=== PATIENT | male | born 1950 | race Caucasian/White ===

== ENCOUNTER 2021-10-28 17:22 | Inpatient (IN) | payer MEDICARE ==
[~2021-10-28] VITALS: Ht 177.8 cm; Wt 62.6 kg
--- NOTE | 2021-10-28 17:37 | NUR ---
LESLIE HOPSON FROM [facility] PRIOR TO [facility] ADMISSION. TO ER BED 11, HOOKED TO MONITOR, VSS. CHANGED TO HOSP GOWN, WARM BLANKET PROVIDED.
--- NOTE | 2021-10-28 18:58 | NUR ---
COVID 19 AG SWAB DONE AND SENT TO LAB
--- NOTE | 2021-10-28 19:05 | NUR ---
HEALTH ADMINISTRATOR AT BEDSIDE
--- NOTE | 2021-10-28 19:14 | NUR ---
PATIENT NOT ABLE TO PROVIDE URINE SAMPLE AT THIS TIME. PROVIDED W WATER.
[2021-10-28 19:19] LABS: BASOPHILS % (AUTO) 0.4 % (0.0-2.0); EOSINOPHILS % (AUTO) 0.8 % (0.0-6.0); HEMATOCRIT 34 % (39-51); HEMOGLOBIN 11.2 g/dL (13.5-17.5); LYMPHOCYTES # (AUTO) 1.8 K/uL (0.8-4.8); LYMPHOCYTES % (AUTO) 23.4 % (20.0-44.0); MEAN CORPUSCULAR HGB CONC 33 g/dl (31.0-36.0); MEAN CORPUSCULAR VOLUME 87 fL (80-96); MONOCYTES # (AUTO) 0.6 K/uL (0.1-1.30); MONOCYTES % (AUTO) 7.8 % (2.0-12.0); NEUTROPHILS # (AUTO) 5.3 K/uL (1.8-8.9); NEUTROPHILS % (AUTO) 67.6 % (43.0-81.0); PLATELET COUNT (AUTO) 272 K/uL (150-450); RED BLOOD CELL COUNT(AUTO) 3.93 MIL/uL (4.5-6.0); WHITE BLOOD COUNT (AUTO) 7.9 K/uL (4.3-11.0)
[2021-10-28 19:27] LABS: CALCIUM, SERUM 8.6 mg/dL (8.5-10.1); CARBON DIOXIDE 25 mmol/L (21-32); CHLORIDE 105 mmol/L (98-107); CREATININE 2.5 mg/dL (0.6-1.3); GLUCOSE 104 mg/dL (74-106); POTASSIUM 4.1 mmol/L (3.5-5.1); SODIUM SERUM 140 mmol/L (136-145); UREA NITROGEN, BLOOD 48 mg/dL (7-18)
--- NOTE | 2021-10-28 19:32 | NUR ---
ENDORSEMENT GIVEN TO DAVID JAMA FOR GRICELDA
[2021-10-28 19:33] LABS: ALANINE AMINOTRANSFERASE 35 U/L (12-78); ALBUMIN 3.1 g/dL (3.4-5.0); ALCOHOL, BLOOD < 3 mg/dL (0-0); ALKALINE PHOSPHATASE 90 U/L (46-116); ASPARTATE AMINOTRANSFERASE 20 U/L (15-37); BILIRUBIN,DIRECT 0.1 mg/dL (0.0-0.2); BILIRUBIN,TOTAL 0.4 mg/dL (0.2-1.0); TOTAL PROTEIN, SERUM 6.3 g/dL (6.4-8.2)
[2021-10-28 19:36] LABS: ACETAMINOPHEN < 2 ug/ml (10-30)
--- NOTE | 2021-10-28 21:38 | NUR ---
ATTEMPTED TO GIVE REPORT, JUST RINGING. WILL TRY AGAIN
--- NOTE | 2021-10-28 22:30 | NUR ---
Ian ly in [facility] - 10/29/21 at 0238 by RAFIQ LAC 20G INITIATED AND FLUIDS RUNNING
--- NOTE | 2021-10-28 22:40 | NUR ---
REPORT GIVEN TO IRMA TILLEY RN FOR GRICELDA
[2021-10-28] MEDS ORDERED: APIX5TAB4 PO (22:45)
[2021-10-28] MEDS ORDERED: OLAN10TA3 PO (22:45)
[2021-10-28] MEDS ORDERED: FERR-68 PO (22:45)
[2021-10-28] MEDS ORDERED: BISA10SU61 RC (22:45)
[2021-10-28] MEDS ORDERED: ACET325T53 PO (22:45)
[2021-10-28] MEDS ORDERED: VIT1TABL46 PO (22:45)
[2021-10-28] MEDS ORDERED: IV NS 0.9% 1,000 ML BAG IV ONE (23:00)
--- NOTE | 2021-10-28 23:30 | NUR ---
LAC 20G INITIATED AND FLUIDS RUNNING
[2021-10-29] MEDS ORDERED: BISACODYL SUPP (10 MG) 10 MG/SUPP.RECT SUPP.RECT RC PRN (00:30)
[2021-10-29] MEDS ORDERED: ACETAMINOPHEN 325 MG TABLET PO PRN ×2 (00:30→03:00)
--- NOTE | 2021-10-29 00:45 | NUR ---
LAB AT BEDSIDE
[2021-10-29 01:21] LABS: CALCIUM, SERUM 8.1 mg/dL (8.5-10.1); CARBON DIOXIDE 26 mmol/L (21-32); CHLORIDE 109 mmol/L (98-107); CREATININE 2.2 mg/dL (0.6-1.3); GLUCOSE 96 mg/dL (74-106); POTASSIUM 3.6 mmol/L (3.5-5.1); SODIUM SERUM 144 mmol/L (136-145); UREA NITROGEN, BLOOD 46 mg/dL (7-18)
[2021-10-29] MEDS ORDERED: ZOLPIDEM TARTRATE 5 MG TABLET PO PRN (03:00)
[2021-10-29] MEDS ORDERED: MAG HYDROX/AL HYDROX/SIMETH 30 ML UDC PO PRN (03:00)
[2021-10-29] MEDS ORDERED: MAGNESIUM HYDROXIDE 30 ML UDC PO PRN (03:00)
[2021-10-29] MEDS ORDERED: LORAZEPAM 1 MG TABLET PO PRN (03:00)
[2021-10-29 03:30] VITALS: BP 110/62
[2021-10-29] MEDS ORDERED: BLOOD SUGAR DIAGNOSTIC 1 EACH STRIP IN ONE (03:30)
--- NOTE | 2021-10-29 04:24 | NUR ---
GPS ADMISSION RN NOTE, RECEIVED PATIENT FROM [facility]. PATIENT ARRIVAL TIME 0238 VIA STRETCHER BY 1 ER STAFF. PATIENT ADMITTED ON A 5150 HOLD FOR DANGER TO OTHERS AND GRAVELY DISABLED. PER HOLD, PATIENT WAS BROUGHT IN BY FROM [facility] IN [place] DUE TO INCREASED CONFUSION AND AGITATION. PATIENT WAS COMPLIANT AND ABLE TO SIGN PAPERWORK. UPON FACE TO FACE ASSESSMENT, PATIENT APPEARS DISHEVLED BUT CALM, COOPERATIVE UPON APPROACH. HOWEVER, PATIENT IS HARD OF HEARING, BUT ABLE TO READ LIPS AND COMMUNICATED IN PEN AND PAPER. RESPIRATIONS ARE EVEN AND UNLABORED WITH NO SOB NOTED. PATIENT SEEMS TO BE ALERT ORIENTED X3. PATIENT CURRENTLY DENIES ANY SUICIDAL IDEATION AND HOMICIDAL IDEATION AT THIS TIME. PATIENT ADVISED OF HOLD AND PATIENT RIGHTS BOOKLET WAS GIVEN. PATIENT BELONGINGS CHECKED FOR CONTRABAND, WHICH PATIENT DOES NOT HAVE ANY. SKIN ASSESSMENT COMPLETED INCLUDING GROIN AND BUTTOCKS WITH NO APPARENT SCRATCHES OR BRUISES NOTED. BLOOD SUGAR CHECKED WITH A READING OF 80. PATIENT ORIENTED TO ROOM AND SLEPT FOR THE REMAINDER OF THE NIGHT. PATIENT EDUCATED ON THE USE OF THE CALL NAVARRETE. PATIENT BED SIDE RAILS UP X2 FOR SAFETY. BED LOCKED, LOW, AND WILL CONTINUE TO MONITOR Q 15 MINUTES FOR SAFETY.
[2021-10-29 08:00] VITALS: BP 112/69
[2021-10-29] MEDS: APIXABAN 5 MG TABLET PO SCH ×2 (09:00→17:00)
[2021-10-29] MEDS: VIT B CMPLX 3/FA/VIT C/BIOTIN 1 TAB TABLET PO SCH (09:00)
[2021-10-29] MEDS: FERROUS SULFATE (325 MG) 325 MG/TAB TABLET PO SCH ×2 (09:00→17:00)
--- NOTE | 2021-10-29 10:35 | NUR ---
SNF Contact: First Aid Trainer spoke with Yahaira ([phone]), Grooming Salon Manager at [facility] ([phone]) who stated that pt is welcomed back upon discharged.
--- NOTE | 2021-10-29 10:35 | NUR ---
MÓNICA Initial Discharge Plan: Patient currently resides at [facility] [place] [address] [place] [address]; ([phone]). Tobacco Hanger spoke with Yahaira ([phone]), Instructor Psychiatric Aide at [facility] ([phone]) who stated that pt is welcomed back upon discharged. Sola shared that pt does not have any support. MÓNICA will coordinate with the treatment team for appropriate discharge.
[2021-10-29 16:00] VITALS: BP 132/68
[2021-10-29] MEDS: DIVALPROEX SODIUM 125 MG CAP.SPRINK PO SCH (17:00)
[2021-10-29 19:53] VITALS: BP 101/52
--- NOTE | 2021-10-29 21:00 | NUR ---
alert and orintate x2 [place] he also speaks loud when answering sits in a wheelchair and wheels himself around the cruz he groves himself in a cornor of the tv room and covers himself with a blanket marble worker sits in the room to watch him and keep him safe
[2021-10-29] MEDS: OLANZAPINE ZYDIS 5 MG TAB.RAPDIS PO SCH (22:00)
--- NOTE | 2021-10-30 01:56 | NUR ---
seen patient wheel himself in to his room and park next to his bed blanket covering his head patien easily angered when spoken to
--- NOTE | 2021-10-30 05:15 | NUR ---
Closing Notes: went to bed 1AM. Refusing all his HS medication. alert and orientated x#. went to be and he slept. no yelling out this 12 hours stays in a wheel chair with blanket over his head
[2021-10-30 07:34] LABS: BASOPHILS % (AUTO) 0.4 % (0.0-2.0); EOSINOPHILS % (AUTO) 1.9 % (0.0-6.0); HEMATOCRIT 32 % (39-51); HEMOGLOBIN 10.7 g/dL (13.5-17.5); LYMPHOCYTES # (AUTO) 2.1 K/uL (0.8-4.8); LYMPHOCYTES % (AUTO) 30.7 % (20.0-44.0); MEAN CORPUSCULAR HGB CONC 34 g/dl (31.0-36.0); MEAN CORPUSCULAR VOLUME 86 fL (80-96); MONOCYTES # (AUTO) 0.6 K/uL (0.1-1.30); MONOCYTES % (AUTO) 8.9 % (2.0-12.0); NEUTROPHILS # (AUTO) 3.9 K/uL (1.8-8.9); NEUTROPHILS % (AUTO) 58.1 % (43.0-81.0); PLATELET COUNT (AUTO) 261 K/uL (150-450); RED BLOOD CELL COUNT(AUTO) 3.69 MIL/uL (4.5-6.0); WHITE BLOOD COUNT (AUTO) 6.8 K/uL (4.3-11.0)
[2021-10-30 07:49] LABS: CALCIUM, SERUM 8.6 mg/dL (8.5-10.1); CARBON DIOXIDE 25 mmol/L (21-32); CHLORIDE 108 mmol/L (98-107); CREATININE 1.9 mg/dL (0.6-1.3); GLUCOSE 99 mg/dL (74-106); POTASSIUM 4.4 mmol/L (3.5-5.1); SODIUM SERUM 141 mmol/L (136-145); UREA NITROGEN, BLOOD 38 mg/dL (7-18)
[2021-10-30 07:57] LABS: CHOLESTEROL 133 mg/dL (<200); HDL CHOLESTEROL 54 mg/dL (40-60); LDL 68 mg/dL (0-99); TRIGLYCERIDES 65 mg/dL (30-150)
[2021-10-30 08:00] VITALS: BP 110/64
[2021-10-30] MEDS: VIT B CMPLX 3/FA/VIT C/BIOTIN 1 TAB TABLET PO SCH (09:00)
[2021-10-30] MEDS: APIXABAN 5 MG TABLET PO SCH ×2 (09:00→16:58)
[2021-10-30] MEDS: DIVALPROEX SODIUM 125 MG CAP.SPRINK PO SCH ×2 (09:00→16:58)
[2021-10-30] MEDS: FERROUS SULFATE (325 MG) 325 MG/TAB TABLET PO SCH ×2 (09:00→16:59)
[2021-10-30 16:00] VITALS: BP 98/60
[2021-10-30] MEDS: OLANZAPINE ZYDIS 5 MG TAB.RAPDIS PO SCH (21:18)
--- NOTE | 2021-10-30 21:18 | NUR ---
GPS-RN NOTES: MEDICATION REFUSAL PATIENT REFUSED SCHEDULED ZYPREXA ZYDIS AT 2200. DESPITE OF EDUCATION PROVIDED. PATIENT CONTINUED TO REFUSE. OFFERED X3. PT STATED, "I WANNA SLEEP". WILL CONTINUE TO MONITOR.
[2021-10-31 08:00] VITALS: BP 133/65
[2021-10-31] MEDS: APIXABAN 5 MG TABLET PO SCH ×2 (08:33→17:00)
[2021-10-31] MEDS: DIVALPROEX SODIUM 125 MG CAP.SPRINK PO SCH ×2 (08:33→17:00)
[2021-10-31] MEDS: FERROUS SULFATE (325 MG) 325 MG/TAB TABLET PO SCH ×2 (08:33→17:00)
[2021-10-31] MEDS: VIT B CMPLX 3/FA/VIT C/BIOTIN 1 TAB TABLET PO SCH (08:33)
--- NOTE | 2021-10-31 08:33 | NUR ---
GPS/RN PT REFUSED AM MEDS OFFERED X3
[2021-10-31 16:00] VITALS: BP 106/61
[2021-10-31 19:24] VITALS: BP 105/55
[2021-10-31 20:30] VITALS: BP 105/55
--- NOTE | 2021-10-31 21:50 | NUR ---
RN NOTE: REFUSED SKI ASSESSMENT PATIENT REFUSED WEEKLY SKIN ASSESSMENT X 3 DESPITE OF RISKS AND BENEFITS EXPLANATIONS. EASILY ANXIOUS AND RESTLESS. UNCOOPERATIVE WITH PLAN OF CARE.
[2021-10-31] MEDS: OLANZAPINE ZYDIS 5 MG TAB.RAPDIS PO SCH (22:00)
--- NOTE | 2021-10-31 22:15 | NUR ---
GPS-RN NOTES: MEDICATION REFUSAL PATIENT REFUSED SCHEDULED ZYPREXA ZYDIS AT 2200 DESPITE OF EDUCATION PROVIDED. UNCOOPERATIVE WITH MEDICATIONS. OFFERED X3. PT STATED, SNACK OFFERED TO THE PATIENT AND TOLERATED WELL. WILL CONTINUE TO MONITOR.
[2021-11-01 08:00] VITALS: BP 115/51
[2021-11-01] MEDS: DIVALPROEX SODIUM 125 MG CAP.SPRINK PO SCH (08:37)
[2021-11-01] MEDS: APIXABAN 5 MG TABLET PO SCH (08:37)
[2021-11-01] MEDS: VIT B CMPLX 3/FA/VIT C/BIOTIN 1 TAB TABLET PO SCH (08:38)
[2021-11-01] MEDS: FERROUS SULFATE (325 MG) 325 MG/TAB TABLET PO SCH (08:38)
--- NOTE | 2021-11-01 12:46 | NUR ---
SW Coordination of Care: Concrete Pouring Supervisor spoke with Myriam, Rehabilitation Physician at [facility]; ([phone]), who stated patient will be accepted at facility today. He came to access pt today at the hospital.
--- NOTE | 2021-11-01 12:47 | NUR ---
SW Discharge Note: Patient will be discharged to [facility] located at [address], [place] [address]; ([phone]). Please arrange ambulance transportation. Tie Tamper spoke with Myriam, Rotary Screen Printing Machine Operator at [facility]; ([phone]), who stated patient will be accepted at facility today. Patient is alert and oriented x1, and is not able to plan for self-care at this time, but is willing to accept care provided for her at the facility. Patient denies any suicidal or homicidal ideations. Patient is aware and agreeable with discharge plans. Patients has no supportive contact at this time. Patient will continue to follow-up with her (Psychiatrist) Dr. Mcintosh [address] [place] [address]; ([phone] and (Straight Tooth Gear Generator Operator) Dr. Lang [address] [place] [address]; ([phone]). Patient presents with euthymic mood and congruent affect.
--- NOTE | 2021-11-01 15:41 | NUR ---
SS group note: SW met with pt.in the activity room and invited him to participate in group about: "What they hope will improve after their treatment at [facility]". Pt. refused to participate even after encouragement. SW will monitor pt. and invite pt. to the next group if appropriate.
[2021-11-01 16:00] VITALS: BP 115/57
--- NOTE | 2021-11-01 16:30 | NUR ---
Patient discharged to Health system in stable condition.Cooperative with treatment plans Patient denies SI/HI/AVH .Behavior improved ,psychiatric tx plans met ,medical tx plans differed for for continual monitoring .Educated pt about after care plan (Exit -care)and copy provided .Hold discontinue by psychiatrist .Returned personal belongings to patient med list given and explained to patient able to verbalize understanding, report given to Flora RN in facility .Vs stable ,no c/o pain .Patient seen by and Dr.Sam Acevedo with discharge orders .Patient discharge at 1630 with ambulance.
== END 2021-11-01 16:25 | DRG 885 ==
LOC: ER 17:27 → GPS 22:32
PROVIDERS: ADMIT Psychiatry & Neurology Psychiatry; ATTEND Internal Medicine
DX: F29 Unspecified psychosis not due to a substance or known physiological condition (principal); N17.0 Acute kidney failure with tubular necrosis; N18.9 Chronic kidney disease, unspecified; Z20.822 Contact with and (suspected) exposure to COVID-19; D50.9 Iron deficiency anemia, unspecified; F03.90 Unspecified dementia, unspecified severity, without behavioral disturbance, psychotic disturbance, mood disturbance, and anxiety; F41.9 Anxiety disorder, unspecified; Z86.718 Personal history of other venous thrombosis and embolism; Z91.14 Patient's other noncompliance with medication regimen; K21.9 Gastro-esophageal reflux disease without esophagitis; M62.81 Muscle weakness (generalized); Z73.6 Limitation of activities due to disability; F32.9 Major depressive disorder, single episode, unspecified; Z79.01 Long term (current) use of anticoagulants; F25.0 Schizoaffective disorder, bipolar type; F39 Unspecified mood [affective] disorder
CPT/HCPCS: 36415; 80048-TC; 80061-TC; 80076-TC; 82962-TC; 85025-TC; 87081-TC; 97116-TC; 97530-TC; C9803; G0480; J7030